=== PATIENT | male | born 1985 | race Caucasian/White ===

== ENCOUNTER → 2019-05-06 | Outpatient (CLI) | payer SELFPAY ==
--- NOTE | 2019-05-07 13:04 | MM ---
Reason for exam: clinical finding. History: Family history of breast cancer in maternal grandmother at age 30 and breast cancer in maternal aunt at age 60. Physical Findings: Nurse Summary: 1cm nodule in the left breast at the nipple (nurse douglas). MG 3D Diag Mammo W/Cad MINERVA Bilateral CC and MLO view(s) were taken. No suspicious abnormality. These results were verbally communicated with the patient and result sheet given to the patient on 05/06/19. ASSESSMENT: Negative, BI-RAD 1 RECOMMENDATION: Clinical management of the left breast.
--- NOTE | 2019-05-07 13:05 | USB ---
Reason for exam: clinical finding. History: Family history of breast cancer in maternal grandmother at age 30 and breast cancer in maternal aunt at age 60. US Breast LT Technologist: Ursula Greene Left complete breast ultrasound includes all four quadrants, the retroareolar region and axilla. Finding demonstrates no cystic or solid lesion seen. No sonographic correlate to the patient's palpable abnormality. These results were verbally communicated with the patient and result sheet given to the patient on 05/06/19. ASSESSMENT: Negative, BI-RAD 1 RECOMMENDATION: Clinical management of the left breast. Manage patient on a clinical basis.
== END | disposition home or self-care (01) ==
LOC: RADMAMWWP 13:33
PROVIDERS: ATTEND Family Medicine
DX: N63.20 Unspecified lump in the left breast, unspecified quadrant (principal); N63.10 Unspecified lump in the right breast, unspecified quadrant
CPT/HCPCS: 77062; 77066

== ENCOUNTER 2019-11-10 18:46 | Emergency (ER) | payer BC ==
[2019-11-10] MEDS ORDERED: KETOROLAC 30 MG/ML 1 ML VIAL IVP STA (19:35)
[2019-11-10] MEDS ORDERED: SODIUM CHLORIDE 0.9% 1,000 ML IV ONE (19:35)
--- NOTE | 2019-11-10 19:35 | ED ---
General Adult HPI - General Chief complaint: Upper Respiratory Infection Stated complaint: head & body aches/diarrhea/SOB/cough Time Seen by Provider: 11/10/19 19:04 Source: patient, family Mode of arrival: ambulatory - History of Present Illness Initial comments: 34-year-old male patient presents to the emergency department today for multiple symptoms. He is reporting body aches, headache, diarrhea, cough, and shortness of breath. Patient states he developed bodyaches over the weekend and the other symptoms started yesterday. Patient states he was exposed to someone with known COVID-19 last week. States he was in close proximity. He denies any fever. Denies any nausea or vomiting. States he has had tonsillectomy and cataract surgery in the past but no other surgeries. Denies any wheezing or sputum production with his cough. States he does feel short of breath especially with coughing episodes in activity. Denies any swelling or pain to the legs or calves. He is also reporting headache. Denies blurred or double vision. Denies weakness. Patient does have uveitis and takes humira and imuran. Patient denies any recent rash, cough, shortness of breath, chest pain, abdominal pain, back pain, numbness, tingling, dizziness, weakness, hematuria, dysuria, urinary urgency, urinary frequency, or any other complaints. - Related Data Allergies Allergy/AdvReac Type Severity Reaction Status Date / Time No Known Allergies Allergy Verified 11/10/19 18:59 Review of Systems ROS Statement: Those systems with pertinent positive or pertinent negative responses have been documented in the HPI. ROS Other: All systems not noted in ROS Statement are negative. Past Medical History Past Medical History: No Reported History Additional Past Medical History / Comment(s): uveitis History of Any Multi-Drug Resistant Organisms: None Reported Past Surgical History: Tonsillectomy Additional Past Surgical History / Comment(s): cataract Past Psychological History: No Psychological Hx Reported Smoking Status: Never smoker Past Alcohol Use History: Occasional Past Drug Use History: None Reported General Exam General appearance: alert, in no apparent distress, other (This is a well- developed, well-nourished adult male patient in no acute distress. Vital signs upon presentation are temperature 98.1F, pulse 102, respirations 18, blood pressure 168/84, pulse ox 97% on room air.) Eye exam: Present: normal appearance, PERRL, EOMI. Absent: scleral icterus, conjunctival injection, periorbital swelling ENT exam: Present: normal exam, normal oropharynx, mucous membranes moist Respiratory exam: Present: normal lung sounds bilaterally. Absent: respiratory distress, wheezes, rales, rhonchi, stridor Cardiovascular Exam: Present: normal rhythm, tachycardia, normal heart sounds. Absent: systolic murmur, diastolic murmur, rubs, gallop, clicks GI/Abdominal exam: Present: soft, normal bowel sounds. Absent: distended, tenderness, guarding, rebound, rigid Neurological exam: Present: alert, oriented X3, CN II-XII intact Psychiatric exam: Present: normal affect, normal mood Skin exam: Present: warm, dry, intact, normal color. Absent: rash Course Vital Signs 11/10/19 11/10/19 11/10/19 18:59 20:17 21:18 Temperature 98.1 F 98.2 F Pulse Rate 102 H 85 92 Respiratory 18 20 18 Rate Blood Pressure 168/84 150/105 152/67 O2 Sat by Pulse 97 98 98 Oximetry Medical Decision Making - Medical Decision Making 34-year-old male patient presents to the emergency department today for complaints of headache, cough, shortness of breath, diarrhea, and body aches. Patient was exposed to someone who tested positive for Coronavirus. Physical examination reveal clear equal lung sounds. He is resting comfortably and appears to be in no respiratory distress. Labs reviewed and are all within normal ranges. D-dimer is negative. CRP is negative. Chest x-ray shows no acute cardio pulmonary process. Coronavirus testing was completed and does result in 12 hours. I did discuss findings results with the patient. He is informed that he is under investigation for coronavirus and he should self quarantine until his results come in. He is instructed to follow-up with his primary care physician for recheck in 1-2 days. He is informed that his immunosuppressed status due to his medications put him at higher risk and he is to maintain a low threshold for return. Return parameters were discussed in detail. He verbalizes understanding and agrees with this plan - Lab Data Result diagrams: 11/10/19 19:31 11/10/19 19:21 Lab Results 11/10/19 11/10/19 11/10/19 Range/Units 19:21 19:21 19:21 WBC (3.8-10.6) k/uL RBC (4.30-5.90) m/uL Hgb (13.0-17.5) gm/dL Hct (39.0-53.0) % MCV (80.0-100.0) fL MCH (25.0-35.0) pg MCHC (31.0-37.0) g/dL RDW (11.5-15.5) % Plt Count (150-450) k/uL Neutrophils % % Lymphocytes % % Monocytes % % Eosinophils % % Basophils % % Neutrophils # (1.3-7.7) k/uL Lymphocytes # (1.0-4.8) k/uL Monocytes # (0-1.0) k/uL Eosinophils # (0-0.7) k/uL Basophils # (0-0.2) k/uL PT 10.0 (9.0-12.0) sec INR 1.0 (<1.2) APTT 24.7 (22.0-30.0) sec D-Dimer 0.19 (<0.60) mg/L FEU Sodium 138 (137-145) mmol/L Potassium 3.8 (3.5-5.1) mmol/L Chloride 103 (98-107) mmol/L Carbon Dioxide 26 (22-30) mmol/L Anion Gap 9 mmol/L BUN 14 (9-20) mg/dL Creatinine 0.75 (0.66-1.25) mg/dL Est GFR (CKD-EPI)AfAm >90 (>60 ml/min/1.73 sqM) Est GFR (CKD-EPI)NonAf >90 (>60 ml/min/1.73 sqM) Glucose 113 H (74-99) mg/dL Plasma Lactic Acid Khai 1.6 (0.7-2.0) mmol/L Calcium 10.1 (8.4-10.2) mg/dL Magnesium 1.9 (1.6-2.3) mg/dL Total Bilirubin 0.5 (0.2-1.3) mg/dL AST 37 (17-59) U/L ALT 29 (4-49) U/L Alkaline Phosphatase 120 (38-126) U/L Lactate Dehydrogenase 520 (313-618) U/L C-Reactive Protein <5.0 (<10.0) mg/L Total Protein 8.2 (6.3-8.2) g/dL Albumin 4.8 (3.5-5.0) g/dL 11/10/19 Range/Units 19:31 WBC 8.2 (3.8-10.6) k/uL RBC 4.68 (4.30-5.90) m/uL Hgb 14.3 (13.0-17.5) gm/dL Hct 42.3 (39.0-53.0) % MCV 90.3 (80.0-100.0) fL MCH 30.6 (25.0-35.0) pg MCHC 33.8 (31.0-37.0) g/dL RDW 14.4 (11.5-15.5) % Plt Count 328 (150-450) k/uL Neutrophils % 63 % Lymphocytes % 27 % Monocytes % 6 % Eosinophils % 2 % Basophils % 1 % Neutrophils # 5.2 (1.3-7.7) k/uL Lymphocytes # 2.2 (1.0-4.8) k/uL Monocytes # 0.5 (0-1.0) k/uL Eosinophils # 0.1 (0-0.7) k/uL Basophils # 0.0 (0-0.2) k/uL PT (9.0-12.0) sec INR (<1.2) APTT (22.0-30.0) sec D-Dimer (<0.60) mg/L FEU Sodium (137-145) mmol/L Potassium (3.5-5.1) mmol/L Chloride (98-107) mmol/L Carbon Dioxide (22-30) mmol/L Anion Gap mmol/L BUN (9-20) mg/dL Creatinine (0.66-1.25) mg/dL Est GFR (CKD-EPI)AfAm (>60 ml/min/1.73 sqM) Est GFR (CKD-EPI)NonAf (>60 ml/min/1.73 sqM) Glucose (74-99) mg/dL Plasma Lactic Acid Khai (0.7-2.0) mmol/L Calcium (8.4-10.2) mg/dL Magnesium (1.6-2.3) mg/dL Total Bilirubin (0.2-1.3) mg/dL AST (17-59) U/L ALT (4-49) U/L Alkaline Phosphatase (38-126) U/L Lactate Dehydrogenase (313-618) U/L C-Reactive Protein (<10.0) mg/L Total Protein (6.3-8.2) g/dL Albumin (3.5-5.0) g/dL - Radiology Data Radiology results: report reviewed, image reviewed One view x-ray of the chest is obtained. Report is reviewed in its entirety. Impression by Dr. Chiang shows normal chest. No change. Disposition Clinical Impression: Suspected 2019 novel coronavirus infection Disposition: HOME SELF-CARE Condition: Good Instructions (If sedation given, give patient instructions): Viral Syndrome (ED) Additional Instructions: Rest. Increase fluids. Monitor temperatures. Self quarantined until you get your results fail coronavirus test. He continued to have symptoms remain self quarantined and have repeat testing done by her physician. If symptoms worsen considerably usually return to the emergency department for further evaluation and possible admission. Is patient prescribed a controlled substance at d/c from ED?: No Referrals: Julian Sanz MD [Primary Care Provider] - 1-2 days Time of Disposition: 21:12
[2019-11-10 20:03] LABS: Basophils % (A) 1 %; Eosinophils # (A) 0.1 k/uL (0-0.7); Eosinophils % (A) 2 %; HCT 42.3 % (39.0-53.0); HGB 14.3 gm/dL (13.0-17.5); Lymphocytes # (A) 2.2 k/uL (1.0-4.8); Lymphocytes % (A) 27 %; MCH 30.6 pg (25.0-35.0); MCHC 33.8 g/dL (31.0-37.0); MCV 90.3 fL (80.0-100.0); Mean Platelet Volume 7.3; Monocytes # (A) 0.5 k/uL (0-1.0); Monocytes % (A) 6 %; Neutrophils # (A) 5.2 k/uL (1.3-7.7); Neutrophils % (A) 63 %; Platelet Count 328 k/uL (150-450); RBC 4.68 m/uL (4.30-5.90); RDW 14.4 % (11.5-15.5); WBC 8.2 k/uL (3.8-10.6)
--- NOTE | 2019-11-10 20:04 | XR ---
EXAMINATION TYPE: XR chest 1V portable DATE OF EXAM: 11/10/2019 COMPARISON: 06/04/2012 HISTORY: Pneumonia. Chest pain TECHNIQUE: FINDINGS: Heart and mediastinum are normal. Lungs are clear. Diaphragm is normal. Bony thorax appears normal. IMPRESSION: Normal chest. No change.
[2019-11-10 20:14] LABS: ALT 29 U/L (4-49); AST 37 U/L (17-59); African American GFR (CKD) >90 (>60 ml/min/1.73 sqM); Albumin 4.8 g/dL (3.5-5.0); Alkaline Phosphatase 120 U/L (38-126); Anion Gap 9 mmol/L; Blood Urea Nitrogen 14 mg/dL (9-20); C Reactive Protein <5.0 mg/L (<10.0); Calcium 10.1 mg/dL (8.4-10.2); Carbon Dioxide 26 mmol/L (22-30); Chloride 103 mmol/L (98-107); Glucose 113 mg/dL (74-99); LDH 520 U/L (313-618); Magnesium 1.9 mg/dL (1.6-2.3); Non-African American GFR(CKD) >90 (>60 ml/min/1.73 sqM); Potassium 3.8 mmol/L (3.5-5.1); Sodium 138 mmol/L (137-145); Total Bilirubin 0.5 mg/dL (0.2-1.3); Total Protein 8.2 g/dL (6.3-8.2)
[2019-11-10 20:18] LABS: D-Dimer 0.19 mg/L FEU (<0.60)
[2019-11-10 20:19] LABS: Partial Thromboplastin Time 24.7 sec (22.0-30.0)
[2019-11-10 21:20] VITALS: BP 152/67; PULSE 92; RESP 18; TEMP 98.2
[2019-11-11 13:13] LABS: Ferritin 454.8 ng/mL (22.0-322.0)
== END 2019-11-10 21:22 | disposition home or self-care (01) ==
LOC: EC 18:46
DX: R06.02 Shortness of breath (principal); R00.0 Tachycardia, unspecified; R05 Cough; R51 Headache; R19.7 Diarrhea, unspecified; Z20.828 Contact with and (suspected) exposure to other viral communicable diseases
CPT/HCPCS: 99285; 96374; 96361; 36415; 85379; 80053; 82728; 83605; 83615; 83735; 85025; 85610; 85730; 86140; 87040; 84145; 71045; U0003; J1885

== ENCOUNTER 2021-08-01 01:53 | Emergency (ER) | payer BC ==
[2021-08-01 01:58] VITALS: TEMP 97.4
[2021-08-01 03:36] LABS: Appearance,Urine Clear (Clear); Bilirubin,Urine Negative (Negative); Blood,Urine Trace (Negative); Color,Urine Yellow; Glucose,Urine (UA) Negative (Negative); Ketones,Urine Trace (Negative); Leukocyte Esterase,Urine Negative (Negative); Mucus,Urine Rare /hpf; Nitrite,Urine Negative (Negative); PH, Urine 5.5 (5.0-8.0); Protein,Urine Negative (Negative); RBC,Urine <1 /hpf (0-5); Specific Gravity,Urine 1.015 (1.001-1.035); Urobilinogen,Urine <2.0 mg/dL (<2.0)
[2021-08-01] MEDS ORDERED: KETOROLAC 15 MG/ML 1 ML VIAL IVP STA (03:42)
[2021-08-01] MEDS ORDERED: SODIUM CHLORIDE 0.9% 1,000 ML IV STA (03:42)
--- NOTE | 2021-08-01 03:51 | ED ---
Abdominal Pain HPI - General Chief Complaint: Abdominal Pain Stated Complaint: Back pain Time Seen by Provider: 08/01/21 03:25 Source: patient, RN notes reviewed, old records reviewed Mode of arrival: ambulatory Limitations: no limitations - History of Present Illness Initial Comments: This is a 36-year-old male to the emergency department for evaluation. Patient presents today for evaluation regards to abdominal pain flank pain left-sided flank pain left-sided back pain feels like it is soft tissue with severe tenderness. No trauma or anything else noted. Patient otherwise has no specific medical history takes no medications no recent fevers no nausea vomiting or diarrhea. MD Complaint: abdominal pain, flank pain -: days(s) Location: L flank Radiation: L flank, back Migration to: L flank Severity: moderate Severity scale (1-10): 5 Quality: aching, sharp Consistency: intermittent Improves With: nothing Worsens With: nothing Associated Symptoms: denies other symptoms Treatments Prior to Arrival: other (none) - Related Data Allergies Allergy/AdvReac Type Severity Reaction Status Date / Time No Known Allergies Allergy Verified 11/10/19 18:59 Review of Systems ROS Statement: Those systems with pertinent positive or pertinent negative responses have been documented in the HPI. ROS Other: All systems not noted in ROS Statement are negative. Past Medical History Past Medical History: No Reported History Additional Past Medical History / Comment(s): uveitis History of Any Multi-Drug Resistant Organisms: None Reported Past Surgical History: Tonsillectomy Additional Past Surgical History / Comment(s): cataract Past Psychological History: No Psychological Hx Reported Smoking Status: Never smoker Past Alcohol Use History: Occasional Past Drug Use History: None Reported General Exam Limitations: no limitations General appearance: alert, in no apparent distress Head exam: Present: atraumatic, normocephalic, normal inspection Eye exam: Present: normal appearance, PERRL, EOMI. Absent: scleral icterus, conjunctival injection, periorbital swelling ENT exam: Present: normal exam, mucous membranes moist Neck exam: Present: normal inspection. Absent: tenderness, meningismus, lymphadenopathy Respiratory exam: Present: normal lung sounds bilaterally. Absent: respiratory distress, wheezes, rales, rhonchi, stridor Cardiovascular Exam: Present: regular rate, normal rhythm, normal heart sounds. Absent: systolic murmur, diastolic murmur, rubs, gallop, clicks GI/Abdominal exam: Present: soft, normal bowel sounds. Absent: distended, tenderness, guarding, rebound, rigid Extremities exam: Present: normal inspection, full ROM, normal capillary refill. Absent: tenderness, pedal edema, joint swelling, calf tenderness Back exam: Present: normal inspection, tenderness (Left paraspinal area L3-L4) Neurological exam: Present: alert, oriented X3, CN II-XII intact Psychiatric exam: Present: normal affect, normal mood Skin exam: Present: warm, dry, intact, normal color. Absent: rash Course Vital Signs 08/01/21 08/01/21 08/01/21 01:54 04:54 04:56 Temperature 97.4 F L Pulse Rate 85 79 79 Respiratory 16 18 18 Rate Blood Pressure 153/94 143/88 143/88 O2 Sat by Pulse 100 100 100 Oximetry - Reevaluation(s) Reevaluation #1: 08/01/21 05:32 Medical record is reviewed Reevaluation #2: 08/01/21 05:32 Patient has no other significant complaints Reevaluation #3: 08/01/21 05:32 Patient informed results and questions answered Medical Decision Making - Medical Decision Making 36 male DF for evaluation of left-sided back pain flank pain. Pain is improved with Toradol, patient has no other findings on computed tomography scan and can be discharged home - Lab Data Result diagrams: 08/01/21 03:54 08/01/21 03:54 Lab Results 08/01/21 08/01/21 08/01/21 Range/Units 03:21 03:54 03:54 WBC 8.7 (3.8-10.6) k/uL RBC 4.70 (4.30-5.90) m/uL Hgb 14.6 (13.0-17.5) gm/dL Hct 43.4 (39.0-53.0) % MCV 92.5 (80.0-100.0) fL MCH 31.1 (25.0-35.0) pg MCHC 33.6 (31.0-37.0) g/dL RDW 13.2 (11.5-15.5) % Plt Count 343 (150-450) k/uL MPV 7.5 Neutrophils % 67 % Lymphocytes % 24 % Monocytes % 6 % Eosinophils % 1 % Basophils % 1 % Neutrophils # 5.8 (1.3-7.7) k/uL Lymphocytes # 2.1 (1.0-4.8) k/uL Monocytes # 0.5 (0-1.0) k/uL Eosinophils # 0.1 (0-0.7) k/uL Basophils # 0.1 (0-0.2) k/uL Sodium 139 (137-145) mmol/L Potassium 4.1 (3.5-5.1) mmol/L Chloride 104 (98-107) mmol/L Carbon Dioxide 26 (22-30) mmol/L Anion Gap 9 mmol/L BUN 13 (9-20) mg/dL Creatinine 0.73 (0.66-1.25) mg/dL Est GFR (CKD-EPI)AfAm >90 (>60 ml/min/1.73 sqM) Est GFR (CKD-EPI)NonAf >90 (>60 ml/min/1.73 sqM) Glucose 98 (74-99) mg/dL Calcium 9.5 (8.4-10.2) mg/dL Total Bilirubin 0.5 (0.2-1.3) mg/dL AST 39 (17-59) U/L ALT 38 (4-49) U/L Alkaline Phosphatase 79 (38-126) U/L Total Protein 8.1 (6.3-8.2) g/dL Albumin 4.7 (3.5-5.0) g/dL Amylase 55 (30-110) U/L Lipase 62 (23-300) U/L Urine Color Yellow Urine Appearance Clear (Clear) Urine pH 5.5 (5.0-8.0) Ur Specific [place] 1.015 (1.001-1.035) Urine Protein Negative (Negative) Urine Glucose (UA) Negative (Negative) Urine Ketones Trace H (Negative) Urine Blood Trace H (Negative) Urine Nitrite Negative (Negative) Urine Bilirubin Negative (Negative) Urine Urobilinogen <2.0 (<2.0) mg/dL Ur Leukocyte Esterase Negative (Negative) Urine RBC <1 (0-5) /hpf Urine Mucus Rare H (None) /hpf - Radiology Data Radiology results: report reviewed (CT abd and pelvis negative for acute diseas e), image reviewed Disposition Clinical Impression: Left flank pain Disposition: HOME SELF-CARE Condition: Good Instructions (If sedation given, give patient instructions): Flank Pain (ED) Is patient prescribed a controlled substance at d/c from ED?: No Referrals: Julian Sanz MD [Primary Care Provider] - 1-2 days
[2021-08-01 04:14] LABS: Basophils # (A) 0.1 k/uL (0-0.2); Basophils % (A) 1 %; Eosinophils # (A) 0.1 k/uL (0-0.7); Eosinophils % (A) 1 %; HCT 43.4 % (39.0-53.0); HGB 14.6 gm/dL (13.0-17.5); Lymphocytes # (A) 2.1 k/uL (1.0-4.8); Lymphocytes % (A) 24 %; MCH 31.1 pg (25.0-35.0); MCHC 33.6 g/dL (31.0-37.0); MCV 92.5 fL (80.0-100.0); Mean Platelet Volume 7.5; Monocytes # (A) 0.5 k/uL (0-1.0); Monocytes % (A) 6 %; Neutrophils # (A) 5.8 k/uL (1.3-7.7); Neutrophils % (A) 67 %; Platelet Count 343 k/uL (150-450); RDW 13.2 % (11.5-15.5); WBC 8.7 k/uL (3.8-10.6)
[2021-08-01 04:27] LABS: ALT 38 U/L (4-49); AST 39 U/L (17-59); African American GFR (CKD) >90 (>60 ml/min/1.73 sqM); Albumin 4.7 g/dL (3.5-5.0); Alkaline Phosphatase 79 U/L (38-126); Amylase 55 U/L (30-110); Anion Gap 9 mmol/L; Blood Urea Nitrogen 13 mg/dL (9-20); Calcium 9.5 mg/dL (8.4-10.2); Carbon Dioxide 26 mmol/L (22-30); Chloride 104 mmol/L (98-107); Glucose 98 mg/dL (74-99); Lipase 62 U/L (23-300); Non-African American GFR(CKD) >90 (>60 ml/min/1.73 sqM); Potassium 4.1 mmol/L (3.5-5.1); Sodium 139 mmol/L (137-145); Total Bilirubin 0.5 mg/dL (0.2-1.3); Total Protein 8.1 g/dL (6.3-8.2)
--- NOTE | 2021-08-01 04:35 | CT ---
EXAMINATION TYPE: CT abdomen pelvis w con DATE OF EXAM: 08/01/2021 COMPARISON: None HISTORY: Left Flank Pain CT DLP: 2394.80 mGycm Automated exposure control for dose reduction was used. CONTRAST: Performed with IV Contrast, patient injected with 100 mL of Isovue 300. Images obtained from the diaphragm to the floor the pelvis with IV contrast. The lung bases are clear. There is no pleural effusion. Heart size is normal. There is no pericardial effusion. There is some fatty infiltration of the liver. Gallbladder appears normal. Spleen stomach pancreas appear intact. There is no adrenal mass. Kidneys show satisfactory contrast opacification. There is no hydronephrosis. Ureters are not dilated . There is no retroperitoneal adenopathy. Appendix is posterior and appears normal. The bladder diste nds smoothly. There is no inguinal hernia. There is no free fluid in the pelvis. There are sigmoid di verticula. No diverticulitis. There is no mesenteric edema. There is no ascites or free air. There is no bowel obstruction. The lumbar vertebrae have normal alignment. There is no compression fracture. Posterior elements are intact. Bony pelvis is intact. Hip joints are intact. IMPRESSION: There is colonic diverticulosis without diverticulitis. No evidence of renal stone or obstruction. No acute abnormality in the abdomen and pelvis.
[2021-08-01 04:56] VITALS: BP 143/88; PULSE 79; RESP 18
== END 2021-08-01 05:30 | disposition home or self-care (01) ==
LOC: EC 01:53
DX: R10.9 Unspecified abdominal pain (principal)
CPT/HCPCS: 36415; 80053; 82150; 83690; 85025; 81001; 74177; 99284; 96374; J1885; Q9967

== ENCOUNTER → 2021-08-16 | Outpatient (CLI) | payer BC ==
--- NOTE | 2021-08-16 14:56 | P.SLEEP ---
History of Present Illness H&P Date: 08/16/21 This is a very pleasant 36-year-old patient was referred to me for sleep apnea evaluation. 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 The patient is working [id number] PM and 7:30 AM in the morning. The patient is going to bed at around 9 AM and he sleeps till 5:30 PM. Despite all this, the patient is having difficulties with functionality and alertness during working hours. He believes that this is related to underlying obstructive sleep apnea. He has been noted to have excessive fatigue and sleepiness. He has been noted to have excessive snoring and he has been also noted to stop breathing at night. At times, the patient developed insomnia and has difficulties in initiating sleep and he was unable to initiate sleep for that reason he was taking melatonin and some Benadryl. For the most part, he is able to generate sleep. He wakes up choking and gasping for air and he has been noted to have apneas. His condition got worse after he doesn't midnight shift. His current Sumner score is at 11. Note that patient has a long history of uveitis. This was diagnosed back in 2008. Initially was treated with systemic steroids between 2008 and 2016 which made him gain significant amount of weight. Currently he is off steroids and is taking a combination of Humiraand Imuran. His vision is adequate and his symptoms of uveitis have been under good control. No 70 motor vehicle accidents because of feeling drowsy or sleepy. No sleep paralysis. No vaccinations. No cataplexy. His weight is up as mentioned. Does not take any naps during working hours. He has a at around 4 AM in the morning. He drinks coffee and p.m. No active substance. He most of alcoholism. Most of trauma. No 70 nocturnal seizures. No grinding of the teeth. No anxiety or panic attacks. No palpitations or heartburns or chest pain. Review of Systems a 14 point review of system was done and the positive findings are almost above history of present illness. As mentioned, the patient is waking up tired and fatigued and is very much worried about his sleep quality. At times he is irritable and he feels depressed. He has difficulty with concentration. Nausea with memory. No issues with any restlessness in lower extremities. No panic attacks, palpitations or heartburns. No grinding of the teeth. No nocturia. Rest of the positive findings were mentioned above. Past Medical History Past Medical History: No Reported History Additional Past Medical History / Comment(s): uveitis History of Any Multi-Drug Resistant Organisms: None Reported Past Surgical History: Tonsillectomy Additional Past Surgical History / Comment(s): cataract Past Psychological History: No Psychological Hx Reported Smoking Status: Never smoker Past Alcohol Use History: Occasional Past Drug Use History: None Reported Medications and Allergies Home Medications and Allergies Comment(s): Humira injections once a week and Imuran on a daily basis Allergies Allergy/AdvReac Type Severity Reaction Status Date / Time No Known Allergies Allergy Verified 11/10/19 18:59 Physical Exam BP is 124/82 with a pulse of 73 respirations 14 and temperature is 90.7 for weight is 286 and a body mass index is 45.1 and the patient's Sumner score is at 11. Saturation is 98% on room air oxygen.he neck circumference is 18 and 3/4 of an inch The patient appeared well nourished and normally developed. Vital signs as documented. Head exam is unremarkable. No scleral icterus or corneal arcus noted. Neck is without jugular venous distension, thyromegaly, or carotid bruits. Carotid upstrokes are brisk bilaterally. patient is a Mallampati class IV.Lungs are clear to auscultation and percussion. Cardiac exam reveals the PMI to be normally sized and situated. Rhythm is regular. First and second heart sounds normal. No murmurs, rubs or gallops. Abdominal exam reveals normal bowel sounds, no masses, no organomegaly and no aortic enlargement. Extremities are nonedematous and both femoral and pedal pulses are normal.Examination of the skin revealed no evidence of significant rashes, suspicious appearing nevi or other concerning lesions.Neurologically, the patient is awake and alert and the patient does not have any focal neurological deficit. Cranial nerves are essentially intact. Assessment and Plan Plan: 1 chronic hypersomnia with an Sumner score of 11. The patient has loud snoring and witnessed apneas and sleep fragmentation and on examination the patient is a Mallampati class IV and the patient has a body mass index of 45.1. 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 Recommend using sunglasses on the way home from work and recommend a light breakfast and going to bed immediately after arriving home and his bedroom environment should be quite comfortable and not noisy and soothing. Meanwhile the patient needs to work on losing weight. He is currently off steroids and this should help with him with his weight loss. The patient will need also to be tested further for sleep apnea. I'm recommending home sleep study knowing that my overall suspicion for sleep apnea is quite high in this patient. This will be admitted night study. I'm going to review and download the data once available and make further recommendations based on the findings. As mentioned, there is a high click a suspicion for underlying obstructive sleep apnea. Sleep Note - Sleep Note Sleep Note: Temperature: Pulse Rate: Respiratory Rate: Blood Pressure: SpO2: Height: Weight: BMI: Neck Circumference:
== END ==
LOC: SLEEP 13:42
PROVIDERS: ATTEND Internal Medicine Critical Care Medicine
DX: G47.10 Hypersomnia, unspecified (principal); E66.9 Obesity, unspecified; Z68.42 Body mass index [BMI] 45.0-49.9, adult; H43.89 Other disorders of vitreous body
CPT/HCPCS: 99211

== ENCOUNTER → 2022-02-14 | Outpatient (CLI) | payer BC ==
--- NOTE | 2022-02-14 15:59 | P.PN ---
Subjective Progress Note Date: 02/14/22 This is a 58-year-old male patient diagnosed having severe symptomatic obstructive sleep apnea and the patient is coming in for a compliance to check regarding his new CPAP machine. The patient was diagnosed having an AHI of 35 consistent with severe disease and the patient was working night shifts. He has previous history of uveitis and he remains on a combination of Humira and Imuran. The patient is using the machine. I did a 30 day compliance and his machine and based on the data that was collected between 01/16/2020 20 02/13/2022, the patient has used the machine 90% of the time of the patient that she is more than 4 hours 73% of the time. The patient has been averaging around 5 hours and 30 minutes of CPAP use per night. His current pressures at 9 cm of water. He is using the Simplus fullface mask medium size. Based on the data, his leak is minimal at home 1.9 L per minute and his AHI is down to 0.8. He is not seeing the full benefit yet. Although is feeling better he is not fully recovered and he still having some tiredness and sleepiness. His AHI while on treatment is down to 0.8 indicating that the patient has been successfully treated. His current Deale scores a 13. He is weighing around 282 pounds which is a few pounds less compared to his last evaluation. No chest pain. No heartburn. On today's evaluation, which tried a nasal mask which she was unable to tolerate and for that reason I kept him on a full face mask and suggested alternatives. Objective - Exam BP is 132/80 with a pulse of 77 and the respiration of 18 with a weight of 282 pounds and temperature 97.2 and his Deale score is at 13 Gen. appearance the patient is obese, comfortable no acute distress. The patient appeared well nourished and normally developed. Vital signs as documented. Head exam is unremarkable. No scleral icterus or corneal arcus noted. Neck is without jugular venous distension, thyromegaly, or carotid bruits. Carotid upstrokes are brisk bilaterally. Lungs are clear to auscultation and percussion. Cardiac exam reveals the PMI to be normally sized and situated. Rhythm is regular. First and second heart sounds normal. No murmurs, rubs or gallops. Abdominal exam reveals normal bowel sounds, no masses, no organomegaly and no aortic enlargement. Extremities are nonedematous and both femoral and pedal pulses are normal.Examination of the skin revealed no evidence of significant rashes, suspicious appearing nevi or other concerning lesions.Neurologically, the patient is awake and alert and the patient does not have any focal neurological deficit. Cranial nerves are essentially intact. Assessment and Plan Plan: Impression Severe symptomatic obstructive sleep apnea with AHI of 35, currently receiving CPAP therapy with successful treatment at a pressure of 9 cm of water. Compliance data was checked pretreatment successful Chronic hypersomnia improving, upper score is down to 13 Obesity with a weight of 282, 6 pounds less compared to his last evaluation History of uveitis maintenance suppression treatment. Plan Continue CPAP therapy at a pressure of 9 cm of water Offered the patient here for this 20 fullface mask medium size Encourage further weight loss Optimize comorbid conditions Optimize sleep hygiene measures and Sleep schedule Anticipate further improvement and the patient was encouraged to use the CPAP machine and see me back in a year's time in follow-up.
== END ==
LOC: SLEEP 15:25
PROVIDERS: ATTEND Internal Medicine Critical Care Medicine
DX: G47.33 Obstructive sleep apnea (adult) (pediatric) (principal); Z99.89 Dependence on other enabling machines and devices; E66.9 Obesity, unspecified

== ENCOUNTER → 2024-07-18 | Outpatient (CLI) | payer BC ==
--- NOTE | 2024-07-18 18:15 | CT ---
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 Sagittal and coronal reformats were created for review. MIP was performed on a separate workstation. Contrast used:100ml mL of Isovue 300 without and with IV Contrast (None if empty) Oral contrast used: (None if empty) CT DLP: 1285.2 mGycm, Automated exposure control for dose reduction was used. FINDINGS: LUNGS/ PLEURA: No focal consolidation, pneumothorax or pleural effusion. AIRWAY: Patent and unremarkable. No clinically significant pulmonary nodules identified. No significa nt fibrosis or fibrotic change. No honeycombing. HEART: Size within normal limits MEDIASTINUM: No gross evidence of adenopathy. VASCULATURE: No aortic aneurysm. MUSCULOSKELETAL: Mild disc degeneration changes are present throughout the thoracolumbar spine second ned to osteophyte formation and facet joint arthropathy. SOFT TISSUES/LYMPH NODES: Unremarkable. LOWER NECK: No significant findings. UPPER ABDOMEN: No significant findings. IMPRESSION: No evidence for pulmonary manifestations of sarcoidosis. No evidence for fibrosis, clinically signifi cant pulmonary nodules or significant emphysema. No lymphadenopathy identified. [facility] Cris Rider, , 07/18/2024 6:12 PM
== END | disposition home or self-care (01) ==
LOC: RADCTMAIN 17:27
PROVIDERS: ATTEND Student in an Organized Health Care Education/Training Program
DX: H44.113 Panuveitis, bilateral (principal)
CPT/HCPCS: 71270; Q9967